=== PATIENT | female | born 1965 | race Caucasian/White ===

== ENCOUNTER 2023-02-25 11:15 | Outpatient (CLI) | payer BC, SELFPAY | END 2023-02-25 11:16 | disposition home or self-care (01) | PROVIDERS: Visit Provider Dermatology | DX: L40.9 Psoriasis, unspecified (principal); Z51.81 Encounter for therapeutic drug level monitoring; Z79.631 Long term (current) use of antimetabolite agent | CPT/HCPCS: 80053; 86480 ==

== ENCOUNTER 2023-03-25 15:00 | Outpatient (CLI) | payer BC, SELFPAY | END 2023-03-25 15:01 | disposition home or self-care (01) | LOC: FRMREF 15:02 | PROVIDERS: PCP Dermatology; Visit Provider Dermatology | DX: Z79.631 Long term (current) use of antimetabolite agent (principal) | CPT/HCPCS: 80053 ==

== ENCOUNTER 2023-06-24 16:00 | Outpatient (CLI) | payer BC, SELFPAY | END 2023-06-24 16:01 | disposition home or self-care (01) | PROVIDERS: PCP Dermatology; Referring Provider Dermatology; Visit Provider Dermatology | DX: Z79.631 Long term (current) use of antimetabolite agent (principal) | CPT/HCPCS: 80053 ==